=== PATIENT | male | born 1950 | race Caucasian/White ===

== ENCOUNTER → 2020-11-26 | Day surgery (SDC) | payer MEDICARE, OTHER ==
[~2020-11-26] MED LIST: ASPIRIN CHEWABL81 MG PO; DORZOLAMIDE-TIM10 ML EYEBOTH; FLEXERIL10 MG PO; MOTRIN600 MG PO; NORCO 5-325 TA1 EACH PO; XALATAN2.5 ML OU
[2020-11-26 08:29] LABS: HCT 41.2 % (42.0-52.0); HGB 12.8 g/dl (13.2-18.0); MCH 25.5 pg (25.0-31.0); MCHC 31.1 g/dL (32.0-36.0); MCV 82.2 fL (78.0-100.0); MPV 10.1 fL (6.0-9.5); RBC 5.01 M/uL (4.70-6.00); RDW 14.4 % (11.5-14.0); WBC 6.3 K/uL (4.0-10.5)
[2020-11-26 08:39] LABS: BUN/CREAT RATIO (CALC) 18.4 RATIO; CREATININE 0.87 mg/dL (0.67-1.17); POTASSIUM 4.2 mmol/L (3.5-5.1)
== END | disposition home or self-care (01) ==
LOC: FAS 07:27
PROVIDERS: Surgery
DX: D12.8 Benign neoplasm of rectum (principal); K52.9 Noninfective gastroenteritis and colitis, unspecified; G47.30 Sleep apnea, unspecified; Z87.891 Personal history of nicotine dependence; Z20.828 Contact with and (suspected) exposure to other viral communicable diseases
CPT/HCPCS: 36415; 80048; 88305; J1610; J2704; J7120

== ENCOUNTER → 2021-01-26 | Day surgery (SDC) | payer MEDICARE, OTHER ==
[2021-01-26 10:32] LABS: HCT 40.4 % (42.0-52.0); HGB 12.9 g/dl (13.2-18.0); MCH 26.2 pg (25.0-31.0); MCHC 31.9 g/dL (32.0-36.0); MCV 81.9 fL (78.0-100.0); RBC 4.93 M/uL (4.70-6.00); RDW 14.4 % (11.5-14.0); WBC 6.9 K/uL (4.0-10.5)
== END | disposition home or self-care (01) ==
LOC: FAS 09:24
PROVIDERS: Legal Medicine
DX: S83.221D Peripheral tear of medial meniscus, current injury, right knee, subsequent encounter (principal); M24.19 Other articular cartilage disorders, other specified site; M25.462 Effusion, left knee; M25.461 Effusion, right knee; M19.90 Unspecified osteoarthritis, unspecified site; N40.0 Benign prostatic hyperplasia without lower urinary tract symptoms; K63.5 Polyp of colon; G47.30 Sleep apnea, unspecified; Z99.81 Dependence on supplemental oxygen; Z98.890 Other specified postprocedural states; Z20.822 Contact with and (suspected) exposure to COVID-19; X58.XXXD Exposure to other specified factors, subsequent encounter
CPT/HCPCS: 36415; J0690; J2250; J2274; J2704; J3010; J7120

== ENCOUNTER → 2021-05-21 | Day surgery (SDC) | payer MEDICARE, OTHER ==
[~2021-05-21] VITALS: Ht 185.4 cm; Wt 90.7 kg
[2021-05-21 10:00] LABS: HCT 37.4 % (42.0-52.0); HGB 12.2 g/dl (13.2-18.0); MCH 27.6 pg (25.0-31.0); MCHC 32.6 g/dL (32.0-36.0); MCV 84.6 fL (78.0-100.0); MPV 9.8 fL (6.0-9.5); RBC 4.42 M/uL (4.70-6.00); RDW 13.8 % (11.5-14.0)
[2021-05-21 10:24] LABS: BUN/CREAT RATIO (CALC) 14.1 RATIO; CREATININE 0.85 mg/dL (0.67-1.17); POTASSIUM 3.9 mmol/L (3.5-5.1)
== END | disposition home or self-care (01) ==
LOC: FAS 08:25
PROVIDERS: Surgery
DX: D37.4 Neoplasm of uncertain behavior of colon (principal); K52.9 Noninfective gastroenteritis and colitis, unspecified; J30.9 Allergic rhinitis, unspecified; M19.90 Unspecified osteoarthritis, unspecified site; G47.30 Sleep apnea, unspecified; Z79.82 Long term (current) use of aspirin; Z79.899 Other long term (current) drug therapy; Z91.09 Other allergy status, other than to drugs and biological substances; Z87.891 Personal history of nicotine dependence
CPT/HCPCS: 36415; 80048; J1610; J2704; J7120

== ENCOUNTER → 2022-02-15 | Day surgery (SDC) | payer MEDICARE, OTHER ==
[~2022-02-15] VITALS: Ht 185.4 cm; Wt 90.7 kg
--- NOTE | 2022-02-15 09:10 | NUR ---
PT STILL PASSING LARGE AMOUNTS OF SOFT, BROWN STOOL AFTER 3RD FLEETS ENEMA. DR. BELLO NOTIFIED. VERBAL ORDER FOR TAP WATER ENEMAS UNTIL CLEAR. RB&V.
[2022-02-15 09:36] LABS: HCT 42.3 % (42.0-52.0); HGB 14.1 g/dl (13.2-18.0); MCH 28.5 pg (25.0-31.0); MCHC 33.3 g/dL (32.0-36.0); MCV 85.6 fL (78.0-100.0); MPV 9.8 fL (6.0-9.5); RBC 4.94 M/uL (4.70-6.00); RDW 13.4 % (11.5-14.0); WBC 5.9 K/uL (4.0-10.5)
[2022-02-15 10:07] LABS: ALBUMIN 3.9 g/dL (3.4-5.0); BILIRUBIN - TOTAL 0.6 mg/dL (0.2-1.0); BUN/CREAT RATIO (CALC) 23.8 RATIO; CREATININE 0.84 mg/dL (0.67-1.17); GLOBULIN (CALCULATION) 2.9 g/dL; POTASSIUM 3.9 mmol/L (3.5-5.1); TOTAL PROTEIN 6.8 g/dL (6.4-8.2)
--- NOTE | 2022-02-15 10:11 | NUR ---
0910: 1000 CC TAP WATER ENEMA SELF ADMINISTERED BY PT. PT PASSED CLEAR, YELLOW TINGED WATERY BM WITH NO SOLID STOOL NOTED. PT TOLERATED WELL. DENIES PAIN.
== END | disposition home or self-care (01) ==
LOC: FAS 08:05
PROVIDERS: Legal Medicine
DX: K62.1 Rectal polyp (principal); Z87.19 Personal history of other diseases of the digestive system; Z79.82 Long term (current) use of aspirin
CPT/HCPCS: 36415; 80053; J2704; J7120